=== PATIENT | female | born 1960 | race Caucasian/White ===

== ENCOUNTER 2021-10-30 07:54 | Outpatient (CLI) | payer OTHER, SELFPAY ==
--- NOTE | 2021-10-30 08:15 | CRLHL7_ITS ---
For Patients: As a result of the Century Cures Act, medical imaging exams and procedure reports are released immediately into your electronic medical record. You may view this report before your referring provider. If you have questions, please contact your health care provider. BILATERAL BREAST MRI WITHOUT AND WITH GADOLINIUM, 10/30/2021 CLINICAL HISTORY: 61-year-old with family history of breast cancer diagnosed in her sister at age 30. INDICATION FOR BREAST MRI: Screening breast MRI in this high-risk woman. COMPARISON STUDIES: Mammogram 04/26/2021. CONTRAST: 20 mL Dotarem. TECHNIQUE: The patient was positioned prone using a breast coil. Multiple imaging sequences were obtained using 1-1.5 mm thick slices with no gap. The image sequences include T2-weighted STIR in the axial plane, T1-weighted nonfat-saturated gradient echo in the axial plane, pre- and post-contrast T1-weighted FLASH 3D with fat suppression in the axial plane, and T1-weighted FLASH high-resolution 3D with fat suppression in the sagittal plane. Image post-processing was performed on a [employer] workstation. Complex 3D rendering including maximum intensity projections (MIPS) and volumetric renderings were obtained to optimize visualization of the extent of pathology and relationship to the nipple, skin, and chest wall. This aids in determining feasibility of breast conservation surgery. Subtraction, multiplanar reconstruction, mean curve determination, and angiogenesis mapping were also performed. The study was technically adequate. FINDINGS: Amount of Fibroglandular Tissue: Scattered fibroglandular tissue. Breast Background Enhancement: Moderate. RIGHT/LEFT Breast: There is no suspicious mass or mass enhancement present. Lymph Nodes: There is no morphologically abnormal axillary lymph nodes or internal mammary lymph nodes. IMPRESSIONS AND RECOMMENDATIONS: No MRI findings for malignancy in either breast. No morphologically abnormal axillary lymph nodes. Would recommend continuing with yearly screening mammography. If screening MRIs are felt to be indicated, recommend that these be offset at six month intervals with the screening mammograms. BI-RADS Category 2: Benign Arianna Hernandes M.D. Diagnostic/Breast Radiologist [email or web address] MORALES/anai ospina/Dictated by: Arianna Hernandes MD @ 10/31/2021 10:17:00 AM (Electronically Signed)
== END 2021-10-30 07:55 | disposition home or self-care (01) ==
PROVIDERS: Visit Provider Physician Assistant
DX: Z91.89 Other specified personal risk factors, not elsewhere classified (principal); Z80.3 Family history of malignant neoplasm of breast
CPT/HCPCS: 77049; A9575

== ENCOUNTER 2022-03-15 08:57 | Outpatient (CLI) | payer OTHER, SELFPAY ==
[2022-03-15 11:15] LABS: Cholesterol* 264 mg/dL (90-199); Glucose* 119 mg/dL (60-115); HDL Cholesterol* 57 mg/dL (>=50); LDL Cholesterol Calculated 190 mg/dL (<100); Triglycerides* 87 mg/dL (40-149)
== END 2022-03-15 08:58 | disposition home or self-care (01) ==
PROVIDERS: PCP Physician Assistant; Visit Provider Physician Assistant
DX: Z01.419 Encounter for gynecological examination (general) (routine) without abnormal findings (principal); E78.5 Hyperlipidemia, unspecified; R73.03 Prediabetes
CPT/HCPCS: 80061; 82947

== ENCOUNTER 2022-04-30 15:48 | Outpatient (CLI) | payer OTHER, SELFPAY ==
--- NOTE | 2022-04-30 16:15 | CRLHL7_ITS ---
For Patients: As a result of the Cures Act, medical imaging exams and procedure reports are released immediately into your electronic medical record. You may view this report before your referring provider. If you have questions, please contact your health care provider. BILATERAL SCREENING MAMMOGRAM WITH COMPUTER-AIDED DETECTION AND TOMOSYNTHESIS TECHNIQUE: CC and MLO views were obtained. These mammographic images have been obtained using full-field digital technique. These mammographic images were interpreted with the benefit of computer-aided detection. Breast Tomosynthesis was used in this interpretation. COMPARISON FILM: 04/26/21,12/20/19, 08/28/18. FINDINGS: There are scattered areas of fibroglandular density IMPRESSION: There is no radiographic evidence for malignancy. ASSESSMENT: BI-RADS Category 1: Negative RECOMMENDATION: Routine screening mammogram in 1 year. A lay language report of this examination will be provided to the patient. Raghu Rome M.D. Diagnostic Radiologist [email or web address] MANFRED/karlos / be/Dictated by: Raghu Rome MD @ 05/01/2022 12:02:00 PM (Electronically Signed)
== END 2022-04-30 15:49 | disposition home or self-care (01) ==
LOC: MAMMO 15:49
PROVIDERS: PCP Physician Assistant; Visit Provider Physician Assistant
DX: Z12.31 Encounter for screening mammogram for malignant neoplasm of breast (principal)
CPT/HCPCS: 77063; 77067

== ENCOUNTER 2022-06-03 07:07 | Outpatient (CLI) | payer OTHER, SELFPAY | END 2022-06-03 07:08 | disposition home or self-care (01) | LOC: OP CLINIC 07:08 | PROVIDERS: PCP Physician Assistant; Visit Provider Surgery | DX: Z12.11 Encounter for screening for malignant neoplasm of colon (principal); K63.5 Polyp of colon | CPT/HCPCS: 45385; 88305; 99153; J2250; J3010 ==

== ENCOUNTER 2022-10-28 14:01 | Outpatient (CLI) | payer OTHER, SELFPAY ==
--- NOTE | 2022-10-28 14:30 | CRLHL7_ITS ---
For Patients: As a result of the Century Cures Act, medical imaging exams and procedure reports are released immediately into your electronic medical record. You may view this report before your referring provider. If you have questions, please contact your health care provider. BILATERAL BREAST MRI WITHOUT AND WITH GADOLINIUM CLINICAL HISTORY: 62-year-old female with elevated risk of breast cancer due to strong family history INDICATION FOR BREAST MRI: Screening breast MRI in this high-risk woman. COMPARISON STUDIES: Breast MRI 10/30/2021, mammogram 04/30/2022 and 04/26/2021. CONTRAST: 15 cc of dotarem. TECHNIQUE: The patient was positioned prone using a breast coil. Multiple imaging sequences were obtained using 1-1.5 mm thick slices with no gap. The image sequences include T2-weighted STIR in the axial plane, T1-weighted nonfat-saturated gradient echo in the axial plane, pre- and post-contrast T1-weighted FLASH 3D with fat suppression in the axial plane, and T1-weighted FLASH high resolution 3D with fat suppression in the sagittal plane. Image post-processing was performed on a [employer] workstation. Complex 3D rendering including maximum intensity projections (MIPS) and volumetric renderings were obtained to optimize visualization of the extent of pathology and relationship to the nipple, skin, and chest wall. This aids in determining feasibility of breast conservation surgery. Subtraction, multiplanar reconstruction, mean curve determination, and angiogenesis mapping were also performed. The study was technically adequate. FINDINGS: Amount of Fibroglandular Tissue: Scattered fibroglandular tissue. Breast Background Enhancement: Mild. RIGHT Breast: No suspicious areas of enhancement. LEFT Breast: No suspicious areas of enhancement. Lymph Nodes: No adenopathy. IMPRESSIONS AND RECOMMENDATIONS: Negative, there is no MRI evidence of malignancy. Continued annual screening mammography and as clinically indicated screening breast MRI. The mammogram and MRI should be offset by six-month interval follow-up time if possible. BI-RADS Category 1: Negative Dictated by Paige Moreno MD @ 10/30/2022 3:56:36 PM/adam RENATO/Dictated by: Paige Moreno MD @ 10/30/2022 4:13:00 PM (Electronically Signed)
== END 2022-10-28 14:02 | disposition home or self-care (01) ==
LOC: MRI 14:02
PROVIDERS: PCP Nurse Practitioner Family; Visit Provider Physician Assistant
DX: Z12.39 Encounter for other screening for malignant neoplasm of breast (principal); Z80.3 Family history of malignant neoplasm of breast; Z91.89 Other specified personal risk factors, not elsewhere classified
CPT/HCPCS: 77049; A9575

== ENCOUNTER 2022-12-30 15:02 | Outpatient (CLI) | payer OTHER, SELFPAY ==
--- NOTE | 2022-12-30 15:30 | CRLHL7_ITS ---
For Patients: As a result of the Century Cures Act, medical imaging exams and procedure reports are released immediately into your electronic medical record. You may view this report before your referring provider. If you have questions, please contact your health care provider. INDICATION: Radiculopathy. COMPARISON: 12/20/2022. Technique Sagittal T1, T2, and STIR sequences. Axial T1 and T2 weighted sequences. FINDINGS: Normal vertebral body alignment. No fractures. No vertebral body loss of height. No spondylolisthesis. No ligamentous injury. No suspicious osseous lesions. Normal conus terminates at L1. T11-12: Disc degeneration loss disc height. Modic type 1 endplate changes. Posterior disc bulge. No narrowing of spinal canal. Mild narrowing of bilateral foramina. T12-L1 L1-2: No spinal canal neural foraminal narrowing. L2-3: Disc degeneration. Diffuse disc bulge. No narrowing of spinal canal. Mild narrowing of bilateral foramina. Mild facet arthropathy. L3-4: Disc degeneration posted disc bulge. Mild narrowing of the spinal canal. No neural foraminal narrowing. Mild facet arthropathy. L4-5: Disc degeneration posterior disc bulge. No narrowing of spinal canal. No neural foraminal narrowing. Mild facet arthropathy. L5-S1: Disc degeneration loss disc height. Modic type 1 endplate changes. Diffuse disc bulge. No narrowing of spinal canal. No impingement of the traversing S1 nerve roots. No neural foraminal narrowing. Mild facet arthropathy. Normal visualized SI joints. Normal paraspinal soft tissues. IMPRESSION: 1. Normal alignment. No fractures. 2. Lumbar spondylosis. 3. At T11-12, mild narrowing of the bilateral neural foramina 4. At L2-3, mild narrowing of the bilateral foramina 5. At L3-4, mild narrowing of the spinal canal. 6. No spinal canal or neural foraminal narrowing at the remaining levels Dictated by Levi Wolf MD @ 12/31/2022 2:44:21 PM (Electronically Signed)
== END 2022-12-30 15:03 | disposition home or self-care (01) ==
LOC: MRI 15:02
PROVIDERS: PCP Nurse Practitioner Family; Visit Provider Orthopaedic Surgery Sports Medicine
DX: M54.16 Radiculopathy, lumbar region (principal); M47.896 Other spondylosis, lumbar region; M51.26 Other intervertebral disc displacement, lumbar region
CPT/HCPCS: 72148

== ENCOUNTER 2023-04-21 08:13 | Outpatient (CLI) | payer OTHER, SELFPAY | END 2023-04-21 08:14 | disposition home or self-care (01) | PROVIDERS: PCP Nurse Practitioner Family; Visit Provider Nurse Practitioner Family | DX: E78.5 Hyperlipidemia, unspecified (principal); R00.0 Tachycardia, unspecified; Z13.0 Encounter for screening for diseases of the blood and blood-forming organs and certain disorders involving the immune mechanism; Z13.29 Encounter for screening for other suspected endocrine disorder | CPT/HCPCS: 80061; 84443; 85025 ==

== ENCOUNTER 2023-04-23 09:56 | Outpatient (CLI) | payer OTHER, SELFPAY ==
--- NOTE | 2023-04-23 10:15 | MR_ITS ---
[address] [address] Phone:?[phone] Fax:?[phone] Referring Physician Information: Pedro Luis Benitez M.D. [address] [address] Phone:?[phone] Fax:?[phone] Patient:Constance Dudley D.O.B:?1960 Sex:?Female Phone:?[phone] [facility] MRN:?[id number] Exam Date:?04/23/2023 EXAM: MRI of the RIGHT KNEE, without contrast CLINICAL HISTORY: Right knee pain. Suspect lateral meniscal tear. COMPARISONS: Plain radiographs 12/10/2022. TECHNICAL: MR sequences of the right knee: sagittals: PD, PDFS coronals: PD, STIR axials: PD, T2 FS CONTRAST: None SEDATION: None FINDINGS: Bones: No fracture, bone marrow contusion, or other suspicious bone marrow signal abnormality. Patellofemoral joint: Cartilage: There is grade II chondromalacia over all portions of the patella. Retinacula: The medial and lateral retinacula are intact. Fat pads: The infrapatellar, quadriceps, and prefemoral fat pads are unremarkable. Knee joint: Effusion: Trace right knee joint effusion. Popliteal cyst: None. Intra-articular bodies: None. Posteromedial corner: The semimembranosus and pes anserine tendons are intact. Medial compartment: Medial meniscus: There is slight free edge fraying of the posterior horn of the medial meniscus. No unstable medial meniscal tear is seen. Cartilage: There is a 3 x 3 mm focus of grade II to III chondromalacia over the mid weightbearing portion of the medial femoral condyle. Lateral compartment: Lateral meniscus: Intact. Cartilage: There is a 5 x 5 mm area of grade I chondromalacia over the central portion of the lateral tibial plateau. Ligaments: Anterior cruciate ligament: Intact. Posterior cruciate ligament: Intact. Medial collateral ligament: Intact. Posterior oblique ligament: Intact. Fibular collateral ligament: Intact. Posterolateral corner: The distal biceps femoris tendon, iliotibial band, popliteus tendon, popliteus muscle, popliteofibular ligament, and arcuate ligament are intact. Extensor mechanism: Patellar tendon: Intact. Quadriceps tendon: Intact. IMPRESSION: 1. 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 2. 3 x 3 mm focus of grade II to III chondromalacia over the mid weightbearing portion of the medial femoral condyle. 3. 5 x 5 mm area of grade I chondromalacia over the central portion of the lateral tibial plateau. 4. Slight free edge fraying of the posterior horn of the medial meniscus. No unstable medial meniscal tear. 5. Trace right knee joint effusion. 6. No osseous, ligamentous, tendinous, or lateral meniscal pathology of the right knee. RCB Electronically signed on 04/23/2023 12:23:00 PM by Jase Frias M.D.
== END 2023-04-23 09:57 | disposition home or self-care (01) ==
LOC: MRI 09:56
PROVIDERS: PCP Nurse Practitioner Family; Visit Provider Orthopaedic Surgery Sports Medicine
DX: M25.561 Pain in right knee (principal); M22.41 Chondromalacia patellae, right knee
CPT/HCPCS: 73721

== ENCOUNTER 2023-04-24 07:15 | Outpatient (CLI) | payer OTHER, SELFPAY | END 2023-04-24 07:16 | disposition home or self-care (01) | LOC: NFLDREF 04-25 06:29 | PROVIDERS: PCP Nurse Practitioner Family; Referring Provider Nurse Practitioner Family; Visit Provider Nurse Practitioner Family | DX: R07.89 Other chest pain (principal) | CPT/HCPCS: 87338 ==

== ENCOUNTER 2023-04-24 15:03 | Outpatient (CLI) | payer OTHER, SELFPAY ==
--- NOTE | 2023-04-24 15:40 | MM_ITS ---
Patient: WYATT MCGRATH Facility:?[facility] Patient ID:?[id number] Site Patient ID:?[id number]. Site :?1960 Study:?XRay-Breast Bilateral 3D W/CAD-04/24/2023 4:37:07 PM Ordering Physician:Glenda June Final Report: BILATERAL DIGITAL SCREENING MAMMOGRAM WITH COMPUTER-AIDED DETECTION CLINICAL HISTORY: Routine screening exam. COMPARISON: 04/30/2022, 04/26/2021, 12/20/2019 TECHNIQUE: Digital mammogram in CC and MLO projections including computer-aided detection (CAD). BREAST COMPOSITION: Scattered fibroglandular densities. FINDINGS: RIGHT Breast: Focal asymmetric density lateral right breast 4 cm from the nipple. LEFT Breast: No suspicious findings. IMPRESSION: RIGHT breast asymmetry/mass. RECOMMENDATIONS: Additional mammographic views of the RIGHT breast including 3D spot-compression CC/MLO. RIGHT breast ultrasound may also be required. A member of the radiology staff will be contacting the patient to arrange for this additional study. BI-RADS Category 0: Incomplete: Need Additional Imaging Evaluation and/or Prior Mammograms for Comparison Dictated by Raghu Rome MD @ 04/25/2023 9:38:31 AM Signed by:?Raghu Rome MD @04/25/2023 9:38:31 AM (Electronic Signature)
== END 2023-04-24 15:04 | disposition home or self-care (01) ==
LOC: MAMMO 15:04
PROVIDERS: PCP Nurse Practitioner Family; Visit Provider Physician Assistant
DX: Z12.31 Encounter for screening mammogram for malignant neoplasm of breast (principal); N63.10 Unspecified lump in the right breast, unspecified quadrant
CPT/HCPCS: 77063; 77067

== ENCOUNTER 2023-04-30 07:41 | Outpatient (CLI) | payer OTHER, SELFPAY | END 2023-04-30 07:42 | disposition home or self-care (01) | LOC: RAD 07:41 | PROVIDERS: PCP Nurse Practitioner Family; Visit Provider Nurse Practitioner Family | DX: R07.89 Other chest pain (principal); Z82.49 Family history of ischemic heart disease and other diseases of the circulatory system | CPT/HCPCS: 93306 ==

== ENCOUNTER 2023-05-12 09:20 | Outpatient (CLI) | payer OTHER, SELFPAY ==
--- NOTE | 2023-05-12 09:45 | MM_ITS ---
Final Report Patient: WYATT MCGRATH Facility:?[facility] Patient ID:?[id number] :?1960 Study:?XRay Breast Right 3D W/CAD-05/12/2023 10:21:13 AM Ordering Physician:Emelina Morales Final Report: DIGITAL DIAGNOSTIC RIGHT MAMMOGRAM USING TOMOSYNTHESIS AND COMPUTER-AIDED DETECTION RIGHT BREAST ULTRASOUND CLINICAL HISTORY: RIGHT breast mass/asymmetry. COMPARISON: Breast MRI 10/28/2022, screening mammogram 04/24/2023. TECHNIQUE: Digital RIGHT mammogram in two projections. Tomosynthesis and CAD utilized. Real-time ultrasound imaging of RIGHT breast with imaging documentation. Scanning was performed by both the technologist and the radiologist. BREAST COMPOSITION: There are areas of scattered fibroglandular density. FINDINGS: 3D spot compression CC/MLO right breast mammogram images submitted. Post excisional biopsy changes are present in the lateral right breast with scar tissue. Decreased conspicuity of previously noted asymmetric density. Benign punctate calcifications. Targeted right breast ultrasound performed 9-10 o`clock 4 cm from the nipple demonstrates typical scar tissue. This corresponds with scarring on the skin. No suspicious findings. IMPRESSION: Benign scar tissue lateral right breast. No suspicious findings. RECOMMENDATIONS: Routine screening mammography. Results and recommendations discussed with the patient. BI-RADS Category 2: Benign A lay language report of this examination will be provided to the patient. Dictated by Raghu Rome MD @ 05/12/2023 10:36:15 AM jj/Dictated by: Raghu Rome MD @ 05/12/2023 10:36:00 AM (Electronic Signature)
--- NOTE | 2023-05-12 10:15 | US_ITS ---
Patient: WYATT MCGRATH Facility:?[facility] Patient ID:?[id number] Site Patient ID:?[id number]. Site :?1960 Study:?US-Breast Right Dr. Rome to read-05/12/2023 10:14:18 AM Ordering Physician:KONRAD Final Report: PLEASE SEE RIGHT BREAST DIAGNOSTIC MAMMOGRAM OF SAME DAY. CRL:sp SP/Dictated by: Raghu Rome MD @ 05/12/2023 10:36:00 AM Signed by:?Raghu Rome MD @05/13/2023 5:13:02 AM (Electronic Signature)
== END 2023-05-12 09:21 | disposition home or self-care (01) ==
LOC: MAMMO 09:21
PROVIDERS: PCP Nurse Practitioner Family; Visit Provider Nurse Practitioner Family
DX: N63.10 Unspecified lump in the right breast, unspecified quadrant (principal); R92.8 Other abnormal and inconclusive findings on diagnostic imaging of breast
CPT/HCPCS: 76642; 77065; G0279

== ENCOUNTER 2023-07-09 15:30 | Outpatient (RCR) | payer OTHER, SELFPAY ==
--- NOTE | 2023-05-28 17:40 | PT.OPEX ---
Please sign the attached physical therapy evaluation completed on 05/28/23. Thank you. PT [place] Outpatient Eval PT [facility] Outpatient Eval Start: 05/26/23 08:44 Freq: Status: Active Protocol: Document 05/28/23 12:53 TLQ (Rec: 05/28/23 17:36 TLQ [id number]) E-signed By Elyse Michael DPT Physical Therapy Outpatient Evaluation Insurance Information Recert Due Date 07/27/23 Insurance Name Other; See Comments Insurance Information/Comments [facility] Medical Diagnosis Unilateral primary osteoarthritis, right hip M16. 11 Treating Diagnosis Pain in right hip M25.551 Stiffness of right hip M25.651 Pain in right knee M25.561 Muscle weakness M62.81 Referring MD Pedro Luis Benitez MD Subjective Subjective Dorina is here to address pain in her right hip and leg. Taking water aerobic classes at [employer] x2 days per week, tries to work out at [employer] an additional 1-2 days, walks her dog daily (~1 mile). When walking her hip begins to hurt during the second half of her walk, has to walk uphill. Also notes increased pain when ascending stairs. Has been waking her up a couple times at night, last night had a lot of aching in her right leg and had to take pain medication to sleep. Sleeps on her back and on her sides, has decreased how often she lays on her right side as this has become uncomfortable. Finds relief when she consistently uses her elliptical or if she takes Advil. Pain is located in the front of her right thigh and extends to into the front of her knee. X-ray of right hip at [facility] on 12/10/22 with the following impression: Moderately severe degenerative joint disease right hip. X-ray of right knee at [facility] on 12/10/22 with the following impression: Minimal patellofemoral degenerative joint disease. MRI of right knee at [facility] on with the following impression: 1. 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 2. 3 x 3 mm focus of grade II to III chondromalacia over the mid weightbearing portion of the medial femoral condyle. 3. 5 x 5 mm area of grade I chondromalacia over the central portion of the lateral tibial plateau. 4. Slight free edge fraying of the posterior horn of the medial meniscus. No unstable medial meniscal tear. 5. Trace right knee joint effusion. 6. No osseous, ligamentous, tendinous, or lateral meniscal pathology of the right knee. PMHx: osteoarthritis, lumbar spondylosis, hyperlipidemia, asthma Pain Comments 3-07/17 location: R hip and anterior knee quality: ache Date of Last Physician Visit 04/29/23 Current Work Status [employer] Occupation Daycare for [employer] Preferred Name Dorina Precautions Therapy Limitations/Systems Review Not Limited Objective Other/Pertinent Objective TRUNK AROM WFL LOWER EXTREMITY ROM Hip: limited in IR on R Knee: 0-125 R LOWER EXTREMITY STRENGTH hip flexion: R 4- anterior hip pain, L 4 hip extension: 4- B hip abduction: 4+ B hip adduction: 4 B hip IR: 4 B hip ER: 4 B, pain on R knee flexion: 5 B knee extension: R 4+, L 5 quad set: good B TTP: proximal quads and distal hip flexor on R JOINT MOBILITY: hypomobile posterior glide of R hip SPECIAL TESTS LULU (+) FADIR (-) LE distraction: no change in symptoms varus stress test (-) valgus stress test (-) GAIT normal Functional Test Performed & Score Lower Extremity Functional Scale (LEFS) score: 54/80 Assessment Assessment/Impression Dorina is a 63-year-old woman who presents to outpatient physical therapy to address right hip and knee pain. X- rays completed at [facility] indicated degenerative process of right hip and right patellofemoral joints, MRI of right knee indicated no significant pathology of right medial meniscus or ligamentous integrity. Primary region of pain extends from anterior hip down her thigh to anterior knee, describes symptoms as an ache with an occasional sharp pain with movement after prolonged inactivity. Symptoms worsen with prolonged walking, initial standing after sitting , and ascending stairs. Reports feeling of increased aches in the evening and wakes a few times per night due to discomfort. She was educated on positioning of lower extremities with pillows for symptom relief. Right knee ROM was WFL today, hip ROM WFL with exception of internal rotation. Muscle weakness also present, has greatest difficulty with combined motions of hip flexion and external rotation. Patient was educated on today's examination findings and benefits of physical therapy intervention, she verbally agreed to POC. Dorina is appropriate for skilled interventions to reduce pain with daily activities. Primary Functional Limitations right hip pain, right knee pain, hip internal rotation, muscle weakness, ascending stairs, walking Plan of Care Rehabilitation Potential Good Physical Therapy Goals In 4 weeks: - Patient will report decreased frequency of waking at night due to pain to 1x/ night for improved quality of sleep. - Patient will report ability to walk 1 mile with <2/10 pain for improved ambulatory tolerance. In 8-10 weeks: - LEFS score will improve to > 63/80 (MCID 9 points) to indicate improved function of RLE with activity. - Patient will report ability to complete combined hip flexion and external rotation to complete lower body dressing with no more than 2/ 10 pain in her R hip. - Patient will be IND with HEP in order to manage symptoms outside of formal PT. Treatment Plan/Direct Interventions Gait Training,Manual Therapy, Neuromuscular Re-ed,Self-Care/ Home Management,Therapeutic Activities,Therapeutic Exercises Frequency/Duration 1x/week for 8-10 weeks Patient Will Be Discharged From Therapy Completion of LTG(s),Skills Plateau,Independent w/HEP, Independently Progressing Evaluation Billing Untimed Code Treatment Minutes 40 Complexity Low Certification Information Initial Certification Date 05/28/23 Ending Certification Date 07/27/23 Provider Signature Shows Agreement With POC & Medical Necessity Physician Signature & Date Requested Please Sign/Date Here Physician Comment/Change : Physician NPI Number #
== END 2023-09-03 15:04 | disposition home or self-care (01) ==
PROVIDERS: PCP Nurse Practitioner Family; Visit Provider Orthopaedic Surgery Sports Medicine
DX: M16.11 Unilateral primary osteoarthritis, right hip (principal); Z51.89 Encounter for other specified aftercare
CPT/HCPCS: 97110; 97140; 97161

== ENCOUNTER 2023-10-28 14:06 | Outpatient (CLI) | payer OTHER, SELFPAY ==
--- NOTE | 2023-10-28 14:30 | CRLHL7_ITS ---
For Patients: As a result of the Century Cures Act, medical imaging exams and procedure reports are released immediately into your electronic medical record. You may view this report before your referring provider. If you have questions, please contact your health care provider. BILATERAL BREAST MRI WITHOUT AND WITH GADOLINIUM CLINICAL HISTORY: Strong family history of breast cancer. INDICATION FOR BREAST MRI: Screening breast MRI in this high risk woman. COMPARISON STUDIES: Breast MRI 10/28/2022, bilateral mammogram 04/24/2023. CONTRAST: Dotarem 20 mL. TECHNIQUE: The patient was positioned prone using a breast coil. Multiple imaging sequences were obtained using 1-1.5 mm thick slices with no gap. The image sequences include T2-weighted STIR in the axial plane, T1-weighted nonfat-saturated gradient echo in the axial plane, pre- and post-contrast T1-weighted FLASH 3D with fat suppression in the axial plane, and T1-weighted FLASH high resolution 3D with fat suppression in the sagittal plane. Image post-processing was performed on a [employer] workstation. Complex 3D rendering including maximum intensity projections (MIPS) and volumetric renderings were obtained to optimize visualization of the extent of pathology and relationship to the nipple, skin, and chest wall. This aids in determining feasibility of breast conservation surgery. Subtraction, multiplanar reconstruction, mean curve determination, and angiogenesis mapping were also performed. The study was technically adequate. FINDINGS: Amount of Fibroglandular Tissue: Scattered. Breast Background Enhancement: Minimal. RIGHT Breast: No suspicious mass or non-mass enhancement. LEFT Breast: No suspicious mass or non-mass enhancement. Lymph Nodes: Lymph nodes show normal size and morphology IMPRESSIONS AND RECOMMENDATIONS: Negative for signs of malignancy. Follow-up with annual screening mammography. If continuing breast MRI this is best offset from the mammogram by 6 months. BI-RADS Category 1: Negative Dictated by Christina Castro MD @ 10/29/2023 4:07:08 PM /sp SP/Dictated by: Christina Castro MD @ 10/29/2023 4:06:00 PM (Electronically Signed)
== END 2023-10-28 14:07 | disposition home or self-care (01) ==
LOC: MRI 14:07
PROVIDERS: PCP Nurse Practitioner Family; Visit Provider Physician Assistant
DX: Z12.39 Encounter for other screening for malignant neoplasm of breast (principal); Z91.89 Other specified personal risk factors, not elsewhere classified; Z80.3 Family history of malignant neoplasm of breast
CPT/HCPCS: 77049; A9575

== ENCOUNTER 2023-12-22 14:52 | Outpatient (CLI) | payer OTHER, SELFPAY | END 2023-12-22 14:53 | disposition home or self-care (01) | PROVIDERS: PCP Nurse Practitioner Family; Visit Provider Nurse Practitioner Family | DX: Z01.818 Encounter for other preprocedural examination (principal) | CPT/HCPCS: 80053; 85025 ==

== ENCOUNTER 2024-01-14 06:06 | Day surgery (SDC) | payer OTHER, SELFPAY ==
[2024-01-14] VITALS (27 sets, daily range): BP systolic 85–139; BP diastolic 45–85; PULSE 58–83; RESP 16–18; TEMP 35.9–37.2; O2SAT 95–99; BMI 29.0
[2024-01-14] MEDS: ACETAMINOPHEN 500 MG TABLET 1000 MG PO ×3 (06:20→20:36)
[2024-01-14] MEDS: OXYCODONE (CR) 10 MG TAB.ER.12H PO (06:20)
[2024-01-14] MEDS: SODIUM CHLORIDE 0.9 % (FLUSH) 10 ML SYRINGE IVF (06:25)
[2024-01-14] MEDS: LACTATED RINGERS 1000 ML 1,000 ML 100 ML IV ×2 (07:00→08:52)
[2024-01-14] MEDS: MIDAZOLAM HCL 1 MG/ML inj IVP (07:00)
[2024-01-14] MEDS: fentaNYL 100 MCG/2 ML inj IVP (07:00)
--- NOTE | 2024-01-14 07:17 | W.PM.NB ---
Nerve Block Nerve Block Time Seen by Provider: 07:00 Date Seen: 01/14/24 Type of block requested by surgeon for post-operative analgesia: SCOTTIE/LFCN Side: right Time out performed: Yes Verification of patient name: Yes Verification of date of : Yes Site marking: site marked Name of person performing procedure: Rohan Edouard Continuous monitoring Was continuous monitoring of O2 sat, B/P, monitoring coordinator, recorded every 15 minutes?: Yes Procedure Checklist: sterile prep, needles and gloves Ultrasound guided. Images saved: Yes Medications given in 5ml increments after negative aspiration: Ropivicaine %: 0.5 mL: 30 Needle gauge: 20 Decadron (mg): 10 Precedex (mcg): 20 Patient tolerated procedure well: Yes Block Charges Block Charge (with Pro Fee): Femoral Nerve Use of Ultrasound Machine for Block: Yes- US Guidance/pain block
--- NOTE | 2024-01-14 07:18 | W.PM.H&PU ---
History & Physical Update History & Physical Update H&P Reviewed and patient assessed: No changes noted
--- NOTE | 2024-01-14 07:19 | SUR.PREOP ---
TIME?OUT:?0700 PT/Jennifer JOSÉ RN/Nimo PECK CRNA/ Kb THOMAS CRNA VERIFICATION?OF?SURGICAL?SITE,?PROCEDURE,?AND?CONSENT OBTAINED?PRIOR?TO?INVASIVE?PROCEDURE.
--- NOTE | 2024-01-14 07:30 | CRLHL7_ITS ---
For Patients: As a result of the Cures Act, medical imaging exams and procedure reports are released immediately into your electronic medical record. You may view this report before your referring provider. If you have questions, please contact your health care provider. INDICATION: Right ABHI. TECHNIQUE: Two spot images of the right hip submitted. 3.47 mGy fluoroscopy dose. FINDINGS: Images taken during ABHI. Dictated by Terry Cheng MD @ 01/14/2024 2:46:02 PM (Electronically Signed)
--- NOTE | 2024-01-14 07:38 | CRLHL7_ITS ---
For Patients: As a result of the Century Cures Act, medical imaging exams and procedure reports are released immediately into your electronic medical record. You may view this report before your referring provider. If you have questions, please contact your health care provider. Indication: Postop right total hip arthroplasty Technique: Two views AP pelvis and right hip Comparison: 12/02/2023 Findings/Impression: The patient is status post right total hip replacement. Alignment is near anatomic. No periprosthetic fracture. Adjacent subcutaneous air consistent with recent surgery. Dictated by Praveen Chavarria MD @ 01/14/2024 3:26:48 PM (Electronically Signed)
[2024-01-14] MEDS: TRANEXAMIC ACID 100 MG/ML INJ 1000 MG IV (07:40)
[2024-01-14] MEDS: CEFAZOLIN 2 GM in 0.9 % SODIUM CHLORIDE Mini-bag 100 ML IVPB ×2 (07:40→16:55)
--- NOTE | 2024-01-14 09:08 | P.ORPRC_ITS ---
Procedure Note Date of procedure: 01/14/24 Procedure: PREOPERATIVE DIAGNOSIS: 1. Right hip osteoarthritis, severe, primary POSTOPERATIVE DIAGNOSIS: 1. Right hip osteoarthritis, severe, primary PROCEDURE: 1. Right total hip arthroplasty-anterior approach 2. 41919 - intraoperative fluoroscopy up to 1 hour. SURGEON: Pedro Luis Benitez MD. PAYLOADER OPERATOR: Zak Aguilar PA-C; FRANSISCO Arce - Of note, a skilled assistant infant toddler teacher was critical for this case to aid in patient positioning, tissue retraction, limb manipulation/positioning, and closure. ANESTHESIA: Spinal anesthetic EBL: 300ml IMPLANTS: DePuy J&J uncemented total hip Mckenzie cup size 50, hole eliminator, +4 neutral liner Actis stem, high offset, size 4 +1 mm ceramic 32mm head COMPLICATIONS: None evident INDICATIONS: The patient is a pleasant 63-year-old female who has experienced severe right hip pain and difficulty bearing weight. Workup included x-rays which revealed severe osteoarthrosis in the hip. Given the deformity, the dysfunction, and the pain, as well as the failure of nonoperative management, recommendation was made for surgery. FINDINGS: Full-thickness chondral loss diffusely throughout the femoral head and acetabulum. Cystic change within the acetabulum. Osteophytes around the f emoral head/neck junction and perimeter of the acetabulum. Moderate effusion upon entering the joint. DESCRIPTION OF PROCEDURE: Following a thorough discussion of risks, benefits, and alternatives consent was obtained and the right hip was marked. The patient was brought to the operating room and placed supine on the operating table. Induction of anesthesia was undertaken. 2 g IV Ancef and 1 g tranexamic acid was administered within 1 hr of incision preoperatively. Proper time-out was performed identifying proper patient, site, procedure. The operative extremity was prepped and draped in the appropriate sterile fashion using ChloraPrep after the patient was positioned on the [place] table with head in neutral alignment and all bony prominences well padded. C-arm fluoroscopic imaging was utilized to confirm proper pelvis rotation and position, and to get true AP films of both the contralateral left, and the affected right hip. This is for comparison. A longitudinal incision was made starting approximately 1 cm distal to the ASIS, and 3-4 cm lateral. The incision was extended distally aiming toward the lateral border the patella. Sharp incision through skin and bovie cautery through the subcutaneous tissue allowed identification of the TFL fascia. This was sharply divided, and the fascia bluntly released from the muscle fibers as we dissected medial. Upon coming to the medial border, we were able to retract the TFL laterally, and penetrated the deeper fascia and identify the crossing circumflex vessels. These were ligated/cauterized. The rectus was elevated from the capsule, and retractors placed laterally and medially along the femoral neck to help with visualization of the capsule. We then performed an inverted T capsulotomy. The capsule was tagged for later repair. Retractors were placed inside the capsule. The femoral neck was visualized after releasing medially down to the lesser trochanter, along the saddle laterally, and up onto the acetabulum. The femoral neck cut was made in line with our preoperative templating. The head was removed in a single piece, and sized. We turned our attention to acetabular preparation. Initially, the labrum was resected from around the perimeter, the pulvinar was excised, allowing us to visualize the false wall. We started the reaming with a 43 mm reamer. This was medialized down to the true wall. We then enlarged our reamers sequentially up to one size less than the selected cup size. We trialed at the same size and found it to have an excellent fit. The selected cup was then opened, inserted, and impacted in line with the goal of 40? of abduction, and 20-25? of anteversion. This was confirmed on C-arm fluoroscopic imaging to be in the appropriate/goal position. Once the cup was placed we placed a hole eliminator and a liner consistent with preop planning. Attention was turned to the femoral preparation. The limb was extended, externally rotated, and adducted. The posteromedial capsule was released, as retractors were placed allowing excellent access to the proximal femur. Initially a hand box coverer was followed by canal finder followed by various broaches. We broached sequentially up to the size noted above, found it to have excellent rotational control, and trialing various heads and necks, revealed that appropriate neck offset, and the above noted head size provided the greates t stability, and oriental orthodox of length, and offset. C-arm fluoroscopic imaging confirmed position of the stem, as well as leg lengths, which were compared with the pre procedure all fluoroscopic images. Trial implants were removed, the real femoral stem inserted, as was the appropriate head. After reducing, the leg was placed through range of motion and stability was confirmed anterior, posterior, and lateral. A 3 min Betadine soak was then performed, and thorough irrigation with normal saline followed. Closure of the capsule was performed with #1 PDS. Bleeding was confirmed to be controlled at this stage, and the TFL fascia was closed with #0 strata fix. Subcutaneous, and subcuticular closure was performed with 2-0 Vicryl and 4-0 Monocryl, respectively. Dressings were applied, and the patient was awoken from anesthesia and transferred the PACU in stable condition. A skilled assistant infant toddler teacher was critical for this case to aid in patient positioning, tissue retraction, acetabular and proximal femoral exposure, limb manipulation/positioning, dislocation/relocation, patient safety, and closure. PLAN: 1. Weight bear as tolerated operative extremity. 2. 23 hr perioperative antibiotics. 3. Ice. 4. PT/OT consults for ambulation assistance/mobility education. 5. Social work consult for discharge planning. 6. DVT prophylaxis with at SCDs and Xarelto x5 days followed by aspirin for a total of 1 month..
[2024-01-14] MEDS: HYDROmorphone 0.5 mg/0.5 ml inj IVP ×2 (09:50→11:06)
[2024-01-14] MEDS: fentaNYL 100 MCG/2 ML inj 50 MCG IVP ×2 (09:54→10:15)
--- NOTE | 2024-01-14 09:55 | W.ANESCHARGE ---
Anesthesia Charges Start Date/Time Anesthesia Start Date: 01/14/24 Anesthesia Start Time: 07:27 Stop Date/Time Anesthesia Stop Date: 01/14/24 Anesthesia Stop Time: 09:51
[2024-01-14] MEDS: OXYCODONE 5 MG TABLET PO ×5 (10:42→23:24)
[2024-01-14] MEDS: hydrOXYzine pamoate 25 MG CAPSULE PO (10:42)
--- NOTE | 2024-01-14 11:56 | SUR.PHASEII ---
patient rating pain 7-9/10. see emar. attempted position changes with no luck at alleviating the pain. updated dr. zuñiga, decision to admit was made. patient was transferred to room 257 on med/surg. report given to luciano wick.
[2024-01-14] MEDS: LACTATED RINGERS 1000 ML 1,000 ML 75 ML IV (13:21)
--- NOTE | 2024-01-14 15:06 | P.IMCN_ITS ---
Date of Consult Patient: [facility] Patient Consult date: 01/14/24 Requesting Physician: Orthopedics Primary Care Provider: Emelina Costa APRN, NAOMI Consult Narrative Reason for consult: Medical management postoperatively Narrative: Dorina Dudley is a 63 year old female past medical history significant for osteoarthritis, lumbar spondylosis, acne, hyperlipidemia, prediabetes is POD#0 s/p right total hip arthroplasty, Dr. Short. There have been no perioperative complications or nursing concerns reported. Estimated total blood loss documented as 300 ml. Updated and reviewed the active medical problems, past medical history, past surgical history, social history, allergies and medications in our electronic EMR. Patient was planned as a same-day surgery, unable to discharge home secondary to uncontrolled postoperative pain. She is admitted for pain management overnight. Postoperatively, reports pain she has been experiencing is over the right levy, somewhat medially along the tibia bone. Was up to commode and reports no worse with weight-bearing. No worse with palpation either. No calf pain. Hip pain is currently well managed. Still feels numb following the block. Denies headache or dizziness. Denies chest pain or shortness of breath. No nausea, tolerating orals. Review of Systems 2 Narrative: REVIEW OF SYSTEMS: Complete review of systems performed and negative unless otherwise stated in HPI or below. [facility] Medical History History of abnormal cervical Pap smear (2018) ?Z87.42 - Personal history of other diseases of the female genital tract (ICD-10) Prediabetes ?R73.03 - Prediabetes (ICD-10) Hyperlipidemia ?E78.5 - Hyperlipidemia, unspecified (ICD-10) Surgical History History of colonoscopy ?Z98.890 - Other specified postprocedural states (ICD-10) History of right breast biopsy (05/1990) ?Z98.890 - Other specified postprocedural states (ICD-10) History of section (12/23/85) ?Z98.891 - History of uterine scar from previous surgery (ICD-10) History of colposcopy (2017) ?Z98.890 - Other specified postprocedural states (ICD-10) Family History Grandmother Cancer of kidney Thyroid cancer Diabetes Grandfather Stroke Heart disease High cholesterol Son Hypertrophic cardiomyopathy Sister Breast cancer, Onset Age: 29 Uncle Colon cancer Mother Diabetes Stroke High blood pressure High cholesterol Uncle Colon cancer Social History 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 Nonsmoker. 3-4 drinks per week. Exercises regularly. No concerns with safety or abuse. Smoking Status: Never smoker How often do you have a drink containing alcohol: 2-3 times a week AUDIT-C Alcohol total score: 3 Non-prescribed substance use: denies use Caffeine: Yes Little interest or pleasure in doing things: not at all Feeling down, depressed, or hopeless: not at all Meds Home Medications and Allergies Allergies Allergy/AdvReac Type Severity Reaction Status Date / Time Sulfa (Sulfonamide Allergy Mild Nausea Verified 01/14/24 06:16 Antibiotics) Exam Narrative: Exam Narrative: PHYSICAL EXAM General: Pleasant, conversant, NAD HEENT: Normocephalic, atraumatic, sclera white, EOMI, oral mucosa moist Cardiovascular: RRR, S1S2. No pitting edema Pulmonary: CTA bilaterally without rhonchi, rales, expiratory wheezes. No dyspnea Abdominal: Soft, nondistended, NTTP Neurological: Alert, answering questions appropriately, cranial nerves intact, no focal findings Extremities: No gross joint deformity or swelling. Postoperative dressing in place, dry. Neurovascularly intact. RLE without erythema, streaking, bruising, swelling. No tenderness with light or deep palpation. No calf tenderness. Negative Homans Skin: Warm, dry. Const: Vital Signs, click to edit/add: Vital Signs - 24 hr 01/14/24 06:28 01/14/24 07:02 01/14/24 07:07 Temperature 97.8 F Pulse Rate 78 72 68 Respiratory Rate 18 18 18 Blood Pressure 139/81 137/85 121/79 Pulse Oximetry 99 99 99 Oxygen Delivery Me thod Room Air Nasal Cannula Nasal Cannula Oxygen Flow Rate 3 3 01/14/24 07:10 01/14/24 07:15 01/14/24 09:46 Temperature 96.8 F L Pulse Rate 71 66 64 Respiratory Rate 16 16 16 Blood Pressure 118/72 114/79 108/61 Pulse Oximetry 98 99 98 Oxygen Delivery Me thod Nasal Cannula Nasal Cannula Room Air Oxygen Flow Rate 3 3 0 01/14/24 09:50 01/14/24 09:55 01/14/24 10:00 Temperature 96.9 F L Pulse Rate 64 63 68 Respiratory Rate 16 16 16 Blood Pressure 101/45 L 98/57 L 100/57 L Pulse Oximetry 98 98 97 Oxygen Delivery Me thod Room Air Room Air Room Air Oxygen Flow Rate 0 0 0 01/14/24 10:05 01/14/24 10:10 01/14/24 10:15 Temperature 97 F L 97 F L Pulse Rate 64 69 65 Respiratory Rate 16 16 16 Blood Pressure 102/53 L 94/57 L 91/66 Pulse Oximetry 97 97 97 Oxygen Delivery Me thod Room Air Room Air Room Air Oxygen Flow Rate 0 0 0 01/14/24 10:20 01/14/24 10:25 01/14/24 10:30 Temperature 97 F L 97.2 F L Pulse Rate 66 61 65 Respiratory Rate 16 16 16 Blood Pressure 91/62 85/57 L 95/52 L Pulse Oximetry 98 95 98 Oxygen Delivery Me thod Room Air Room Air Room Air Oxygen Flow Rate 0 0 0 01/14/24 10:45 01/14/24 11:00 01/14/24 11:15 Temperature Pulse Rate 58 L 60 59 L Respiratory Rate 16 16 16 Blood Pressure 92/62 103/69 106/68 Pulse Oximetry 97 96 99 Oxygen Delivery Me thod Room Air Room Air Room Air Oxygen Flow Rate 0 0 0 01/14/24 11:30 01/14/24 12:00 01/14/24 12:30 Temperature 96.6 F L 96.7 F L Pulse Rate 60 72 68 Respiratory Rate 16 16 16 Blood Pressure 110/70 118/75 121/71 Pulse Oximetry 97 95 95 Oxygen Delivery Me thod Room Air Room Air Room Air Oxygen Flow Rate 0 0 0 01/14/24 13:30 Temperature 97 F L Pulse Rate 73 Respiratory Rate 16 Blood Pressure 107/75 Pulse Oximetry 97 Oxygen Delivery Me thod Room Air Oxygen Flow Rate 0 Assessment and Plan Assessment and plan (1) Osteoarthritis of right hip: Problem comment: -POD#0 s/p R ABHI, Dr. Short -perioperative management including pain management and anticoagulation per Orthopedic surgery -encourage postoperative pulmonary hygiene -PT OT consults -plan to discharge home with tomorrow May resume home medications upon discharge, currently only prescription is cl indamycin gel for known history of acne. Hospital medicine team will sign off. Please contact our service with any questions or concerns. Status: Acute (2) Right leg pain: Problem comment: -post operative nontraumatic right levy pain, nonreproducible with palpation, no worse with weight bearing -symptomatic cares Status: Acute Total Time Spent Total Time Spent: Total time spent caring for the patient today was 45 minutes. This includes time spent for the visit reviewing the chart, time spent during the visit, time spent after the visit and documentation and planning in coordination of care.
[2024-01-14] MEDS: SENNOSIDES 1 TAB TABLET 2 TAB PO (20:36)
--- NOTE | 2024-01-14 23:00 | PC.NURSE ---
Pt friendly and cooperative. Moves well with assist x1. Surgical dressing C,D,&I with active ice in place. Tolerates regular diet without difficulty. VS WNL and LS COA. Rates pain 4/10. Afebrile. Plans to discharge home with her tomorrow.
[2024-01-15] MEDS: CEFAZOLIN 2 GM in 0.9 % SODIUM CHLORIDE Mini-bag 100 ML IVPB (01:35)
[2024-01-15 02:06] VITALS: BP 110/67; PULSE 78; RESP 16; TEMP 37.3; O2SAT 95
[2024-01-15] MEDS: OXYCODONE 5 MG TABLET PO ×3 (02:07→08:13)
[2024-01-15] MEDS: ACETAMINOPHEN 500 MG TABLET 1000 MG PO ×2 (02:07→07:49)
--- NOTE | 2024-01-15 05:47 | PC.NURSE ---
End of shift [id number]: A&O pleasant and cooperative. pt rating pain up to 7/10 in right hip. see eMAR for interventions. +CMS. strong plantar/dorsi flexion. denies any numbness or tingling in RLE. Dressing to hip c/d/i. tolerating diet. denies n/v. saline locked. voiding adequate amounts. up w/ A1 walker and GB. ambulated in santos x1 overnight and tolerated well. Pt has needed PRN oxycodone q2-3 hours overnight. sleeping intermittently in between doses. using call light appropriately.
[2024-01-15 06:30] LABS: Basophils Percent Auto 0.1 % (0.0-3.0); Eosinophils Percent Auto 0.1 % (0.0-7.0); Hematocrit 31.4 % (33.0-51.0); Hemoglobin* 11.1 gm/dL (12.0-16.0); Immature Granulocytes Pct Auto 0.2 %; Lymphocytes Percent Auto 26.6 % (20-44); Mean Corpuscular HGB Conc 35 gm/dL (32-36); Mean Corpuscular Hemoglobin 33 pg (26-34); Mean Corpuscular Volume 93 fL (80-100); Monocytes Percent Auto 9.5 % (0.0-11.0); Neutrophils Percent Auto 63.5 % (42.0-72.0); Platelet Count* 170 K/uL (140-440); RDW Coefficient of Variation % 12.1 % (11.5-15.5); Red Blood Count 3.37 m/uL (4.00-5.20); White Blood Count* 14.56 K/uL (4.50-11.00)
[2024-01-15 06:41] LABS: Slide Review Reflex No
[2024-01-15 06:50] LABS: Potassium* 4.1 mmol/L (3.6-5.1); Sodium* 133 mmol/L (135-149)
[2024-01-15 06:53] LABS: Blood Urea Nitrogen* 19 mg/dL (7-30); Creatinine* 0.6 mg/dL (0.5-1.5); Est. Creatinine Clearance* 52.49; Estimated Glomerular Filt Rate 101 ml/min
[2024-01-15 07:46] VITALS: BP 122/68; PULSE 73; RESP 16; TEMP 37.4; O2SAT 93
[2024-01-15] MEDS: SENNOSIDES 1 TAB TABLET 2 TAB PO (07:48)
[2024-01-15] MEDS: RIVAROXABAN 10 MG TABLET PO (07:49)
[2024-01-15 08:03] VITALS: O2SAT 93
--- NOTE | 2024-01-15 08:20 | PM.ORPN ---
Subjective Subjective Date Seen: 01/15/24 Principal diagnosis: Status postop day 1, right total hip arthroplasty - anterior approach Interval history: Patient reports doing well. Feels much better than the previous day. She ended up staying overnight due to uncontrolled pain postop day 0. No acute events over night. Pain managed with scheduled and PRN medications, ice. DVT prophylaxis: Rivaroxaban, SCDs, walking. Denies fevers, chills, aches, N/V, CP, SOB/[place], or lightheadedness. Passing flatus. Enjoying her breakfast. Complains of some right anterior thigh and levy discomfort. No burning sensation or radicular-type pain. No history of back pain or lumbar spine pathology. Ortho Exam Narrative Exam Narrative: -Patient appears comfortable in recliner eating breakfast; no apparent acute distress -Alert and oriented times 3 -Operative hip mildly swollen; soft tissues supple; no obvious erythema. Ecchymosis minimal. Warmth appropriate -Surgical dressing clean, dry, intact; no obvious drainage, no erythematous streaking peripheral to the bandage -Bilateral calves soft and supple; no significant swelling, edema, tenderness, erythema, discoloration, warmth, or palpable cords -2+ DP/PT pulses, intact dermatomes and myotomes distally (5/5 strength). Numbness involving lateral femoral cutaneous nerve distribution. Const Vital Signs, click to edit/add: Vital Signs - 24 hr 01/14/24 09:46 01/14/24 09:50 01/14/24 09:55 Temperature 96.8 F L 96.9 F L Pulse Rate 64 64 63 Pulse Rate [Pulse Oximeter] Respiratory Rate 16 16 16 Blood Pressure 108/61 101/45 L 98/57 L Blood Pressure [Right Arm] Pulse Oximetry 98 98 98 Oxygen Delivery Method Room Air Room Air Room Air Oxygen Flow Rate 0 0 0 01/14/24 10:00 01/14/24 10:05 01/14/24 10:10 Temperature 97 F L Pulse Rate 68 64 69 Pulse Rate [Pulse Oximeter] Respiratory Rate 16 16 16 Blood Pressure 100/57 L 102/53 L 94/57 L Blood Pressure [Right Arm] Pulse Oximetry 97 97 97 Oxygen Delivery Method Room Air Room Air Room Air Oxygen Flow Rate 0 0 0 01/14/24 10:15 01/14/24 10:20 01/14/24 10:25 Temperature 97 F L 97 F L 97.2 F L Pulse Rate 65 66 61 Pulse Rate [Pulse Oximeter] Respiratory Rate 16 16 16 Blood Pressure 91/66 91/62 85/57 L Blood Pressure [Right Arm] Pulse Oximetry 97 98 95 Oxygen Delivery Method Room Air Room Air Room Air Oxygen Flow Rate 0 0 0 01/14/24 10:30 01/14/24 10:45 01/14/24 11:00 Temperature Pulse Rate 65 58 L 60 Pulse Rate [Pulse Oximeter] Respiratory Rate 16 16 16 Blood Pressure 95/52 L 92/62 103/69 Blood Pressure [Right Arm] Pulse Oximetry 98 97 96 Oxygen Delivery Method Room Air Room Air Room Air Oxygen Flow Rate 0 0 0 01/14/24 11:15 01/14/24 11:30 01/14/24 12:00 Temperature 96.6 F L Pulse Rate 59 L 60 72 Pulse Rate [Pulse Oximeter] Respiratory Rate 16 16 16 Blood Pressure 106/68 110/70 118/75 Blood Pressure [Right Arm] Pulse Oximetry 99 97 95 Oxygen Delivery Method Room Air Room Air Room Air Oxygen Flow Rate 0 0 0 01/14/24 12:30 01/14/24 13:30 01/14/24 14:30 Temperature 96.7 F L 97 F L 97 F L Pulse Rate 68 73 67 Pulse Rate [Pulse Oximeter] Respiratory Rate 16 16 16 Blood Pressure 121/71 107/75 119/78 Blood Pressure [Right Arm] Pulse Oximetry 95 97 96 Oxygen Delivery Method Room Air Room Air Room Air Oxygen Flow Rate 0 0 0 01/14/24 15:00 01/14/24 15:00 01/14/24 19:00 Temperature 98.9 F Pulse Rate Pulse Rate [Pulse Oximeter] 74 83 Respiratory Rate 16 16 16 Blood Pressure Blood Pressure [Right Arm] 131/71 Pulse Oximetry 96 95 Oxygen Delivery Method Room Air Room Air Oxygen Flow Rate 0 0 01/14/24 23:13 01/14/24 23:18 01/15/24 02:06 Temperature 98.5 F 99.1 F Pulse Rate Pulse Rate [Pulse Oximeter] 82 78 Respiratory Rate 16 16 16 Blood Pressure Blood Pressure [Right Arm] 115/67 110/67 Pulse Oximetry 95 95 95 Oxygen Delivery Method Room Air Room Air Room Air Oxygen Flow Rate 01/15/24 07:46 01/15/24 08:03 Temperature 99.3 F Pulse Rate Pulse Rate [Pulse Oximeter] 73 Respiratory Rate 16 Blood Pressure Blood Pressure [Right Arm] 122/68 Pulse Oximetry 93 93 Oxygen Delivery Method Room Air Oxygen Flow Rate Assessment and Plan Assessment and plan (1) Osteoarthritis of right hip: Problem details: -POD#1 s/p R ABHI, Dr. Short -perioperative management including pain management and anticoagulation per Orthopedic surgery -encourage postoperative pulmonary hygiene -PT OT consults -plan to discharge home with tomorrow May resume home medications upon discharge, currently only prescription is clindamycin gel for known history of acne. Hospital medicine team will sign off. Please contact our service with any questions or concerns. Status: Acute (2) Right leg pain: Problem details: -post operative nontraumatic right levy pain, nonreproducible with palpation, no worse with weight bearing -symptomatic cares Status: Acute Plan - Complete 23 hour perioperative antibiotics. - PT/OT consult for education and assistance. - Social work consult for discharge planning - Prescribed analgesics as needed - DVT prophylaxis: Rivaroxaban, walking, and SCDs - Anticipation is for discharge to home with family/friends today 01/15/2024 if the patient remains medically stable, pain is controlled, and they are safe with mobilization.
--- NOTE | 2024-01-15 10:44 | PC.NURSE ---
Patient discharged home with spouse. Prescriptions sent to [facility] pharmacy in [place]. F/U appointment made. PIV taken out and catheter intact. Tolerating PO pain medications. Denies nausea. Lung sounds clear, Vital signs within normal limits. Tolerating a regular diet. Passing flatus. Voiding without difficulty. Incision clean, dry, and intact. PT/OT completed without difficulty. Left via wheelchair escort with .
== END 2024-01-15 10:40 | disposition home or self-care (01) ==
LOC: OR 06:07 → MEDSURG 12:18
PROVIDERS: PCP Nurse Practitioner Family; Visit Provider Orthopaedic Surgery Sports Medicine
PROC: (CPT 27130; principal; 2024-01-14 07:30)
DX: M16.11 Unilateral primary osteoarthritis, right hip (principal); G89.18 Other acute postprocedural pain; M47.896 Other spondylosis, lumbar region; E78.5 Hyperlipidemia, unspecified; R73.03 Prediabetes; M79.604 Pain in right leg; L70.9 Acne, unspecified
CPT/HCPCS: 27130; 01214; 36415; 64447; 73501; 76000; 76942; 82565; 84132; 84295; 84520; 85025; 86850; 86900; 86901; 97110; 97116; 97161; 97165; 97530; 97535; A9270; C1776; J0690; J1100; J1171; J2250; J2371; J2405; J2704; J2795; J3010; J7120

== ENCOUNTER 2024-02-11 13:00 | Outpatient (RCR) | payer OTHER, SELFPAY | END 2024-02-11 13:58 | disposition home or self-care (01) | PROVIDERS: PCP Nurse Practitioner Family; Visit Provider Orthopaedic Surgery Sports Medicine | DX: M16.11 Unilateral primary osteoarthritis, right hip (principal); Z96.641 Presence of right artificial hip joint; M25.551 Pain in right hip; Z74.09 Other reduced mobility; R26.9 Unspecified abnormalities of gait and mobility; M62.81 Muscle weakness (generalized); Z51.89 Encounter for other specified aftercare | CPT/HCPCS: 97110; 97140; 97161; 97164; 97535 ==

== ENCOUNTER 2024-04-26 13:42 | Outpatient (CLI) | payer OTHER, SELFPAY | END 2024-04-26 13:43 | disposition home or self-care (01) | LOC: MAMMO 13:43 | PROVIDERS: PCP Nurse Practitioner Family; Visit Provider Nurse Practitioner Family | DX: Z12.31 Encounter for screening mammogram for malignant neoplasm of breast (principal) | CPT/HCPCS: 77063; 77067 ==

== ENCOUNTER 2024-08-09 08:19 | Outpatient (CLI) | payer OTHER, SELFPAY ==
[2024-08-13 10:43] LABS: HPV Source Vaginal; HPV, High Risk by TMA Not Detected
== END 2024-08-09 08:20 | disposition home or self-care (01) ==
PROVIDERS: PCP Nurse Practitioner Family; Visit Provider Nurse Practitioner Family
DX: Z00.00 Encounter for general adult medical examination without abnormal findings (principal); R20.2 Paresthesia of skin; E78.5 Hyperlipidemia, unspecified; C43.9 Malignant melanoma of skin, unspecified; Z11.51 Encounter for screening for human papillomavirus (HPV); Z12.4 Encounter for screening for malignant neoplasm of cervix
CPT/HCPCS: 80053; 80061; 82607; 82728; 84443; 85025; 87624; 87625; 88141; 88142

== ENCOUNTER 2024-10-19 14:41 | Outpatient (CLI) | payer OTHER, SELFPAY ==
--- NOTE | 2024-10-19 14:30 | CRLHL7_ITS ---
For Patients: As a result of the Century Cures Act, medical imaging exams and procedure reports are released immediately into your electronic medical record. You may view this report before your referring provider. If you have questions, please contact your health care provider. BILATERAL BREAST MRI WITHOUT AND WITH GADOLINIUM CLINICAL HISTORY: Family history of breast cancer including her sister who was diagnosed at age 30 INDICATION FOR BREAST MRI: Screening breast MRI due to increased risk for breast cancer. COMPARISON STUDIES: Bilateral mammogram 04/24/2023, breast MRI 10/28/2023, 10/28/2022 CONTRAST: Twenty mL Clariscan IV. TECHNIQUE: The patient was positioned prone using a breast coil. Multiple imaging sequences were obtained using 1-1.5 mm thick slices with no gap. The image sequences include T2-weighted STIR in the axial plane, T1-weighted nonfat-saturated gradient echo in the axial plane, pre- and post-contrast T1-weighted FLASH 3D with fat suppression in the axial plane, and T1-weighted FLASH high resolution 3D with fat suppression in the sagittal plane. Image post-processing was performed on a [employer] workstation. Complex 3D rendering including maximum intensity projections (MIPS) and volumetric renderings were obtained to optimize visualization of the extent of pathology and relationship to the nipple, skin, and chest wall. This aids in determining feasibility of breast conservation surgery. Subtraction, multiplanar reconstruction, mean curve determination, and angiogenesis mapping were also performed. The study was technically adequate. FINDINGS: Amount of Fibroglandular Tissue: Scattered Breast Background Enhancement: Mild RIGHT Breast: No suspicious mass or non mass enhancement LEFT Breast: No suspicious mass or non mass enhancement Lymph Nodes: Lymph nodes are within normal limits IMPRESSIONS AND RECOMMENDATIONS: Negative for signs of malignancy. Follow-up with annual screening mammography. If continuing breast MRI this is best offset from the mammogram by 6 months. BI-RADS: 1-negative Dictated by Christina Castro MD @ 10/21/2024 1:38:35 PM (Electronically Signed)
== END 2024-10-19 14:42 | disposition home or self-care (01) ==
LOC: MRI 14:43
PROVIDERS: PCP Nurse Practitioner Family; Visit Provider Physician Assistant
DX: Z12.39 Encounter for other screening for malignant neoplasm of breast (principal); Z80.3 Family history of malignant neoplasm of breast; Z91.89 Other specified personal risk factors, not elsewhere classified
CPT/HCPCS: 77049; C8908; C8937; A9575

== ENCOUNTER 2024-11-16 10:00 | Outpatient (CLI) | payer OTHER, SELFPAY | END 2024-11-16 10:01 | disposition home or self-care (01) | PROVIDERS: PCP Nurse Practitioner Family; Visit Provider Nurse Practitioner Family | DX: R21 Rash and other nonspecific skin eruption (principal) | CPT/HCPCS: 80061; 80076; 86618 ==